=== PATIENT | male | born 1980 | race Caucasian/White ===

== ENCOUNTER 2018-12-11 20:11 | Emergency (ER) | payer BC ==
[2018-12-11] MEDS ORDERED: ASPIRIN 81 MG CHEWABLE TABLET ONE (21:13)
[2018-12-11 21:20] LABS: Basophils % 0.2 % (0-1.3); Eosinophils % 1.4 % (0-4.4); Hematocrit 42.9 % (39.6-49.0); Lymphocytes % 24.8 % (15.3-44.8); MPV 8.6 fL (7.6-11.3); RBC Red Blood Cell Count 4.87 M/uL (4.33-5.43)
[2018-12-11 21:21] LABS: Protime INR 1.03
[2018-12-11 21:28] LABS: ALT/SGPT 33 U/L (12-78); AST/SGOT 21 U/L (15-37); Albumin 3.9 g/dL (3.4-5.0); Alkaline Phosphatase 95 U/L (45-117); BUN Blood Urea Nitrogen 11 mg/dL (7-18); Bicarbonate 27 mmol/L (21-32); Bilirubin Direct < 0.1 mg/dL (0-0.2); Bilirubin Total 0.4 mg/dL (0.2-1.0); Glucose Level 121 mg/dL (74-106); Magnesium 2.1 mg/dL (1.8-2.4); NT PRO-BNP 10 pg/mL (<125); Potassium 3.5 mmol/L (3.5-5.1); Protein, Total 7.7 g/dL (6.4-8.2); Sodium Level 141 mmol/L (136-145); Troponin (Emerg Dept Use Only) < 0.02 ng/mL (0.0-0.045)
--- NOTE | 2018-12-11 21:43 | EDPHYS ---
Physician Documentation [facility] Name: Reese Heredia Age: 38 yrs Sex: Male : 1980 Arrival Date: 12/11/2018 Time: 20:12 Bed 26 Private MD: Jose Martin José R ED Physician Andres Higgins HPI: 12/11 21:35 This 38 yrs old Male presents to ER via Ambulatory with complaints of Chest jr8 Pain. 21:35 The patient or guardian reports chest pain that is located primarily in the substernal jr8 area. The pain does not radiate. Associated signs and symptoms: The patient has no apparent associated signs or symptoms. The chest pain is described as a pressure. Duration: The patient or guardian reports multiple episodes, that are intermittent, that wax and wane, with no pattern. Modifying factors: The symptoms are alleviated by nothing. the symptoms are aggravated by nothing. Severity of pain: At its worst the pain was moderate in the emergency department the pain has improved. The patient has not experienced similar symptoms in the past. The patient has not recently seen a physician. Stated that he has had sudden onset chest pressure for past week that is intermittent but will not go away. Historical: - Allergies: 20:22 Cipro; aj - Immunization history:: Adult Immunizations not up to date. - Ebola Screening: : Patient negative for fever greater than or equal to 101.5 degrees Fahrenheit, and additional compatible Ebola Virus Disease symptoms Patient denies exposure to infectious person Patient denies travel to an Ebola-affected area in the 21 days before illness onset No symptoms or risks identified at this time. - Social history:: Smoking status: Patient/guardian denies using tobacco, never smoked. ROS: 21:35 Eyes: Negative for injury, pain, redness, and discharge, ENT: Negative for injury, jr8 pain, and discharge, Neck: Negative for injury, pain, and swelling, Respiratory: Negative for shortness of breath, cough, wheezing, and pleuritic chest pain, Abdomen/GI: Negative for abdominal pain, nausea, vomiting, diarrhea, and constipation, Back: Negative for injury and pain, MS/Extremity: Negative for injury and deformity, Skin: Negative for injury, rash, and discoloration, Neuro: Negative for headache, weakness, numbness, tingling, and seizure. 21:35 Cardiovascular: Positive for chest pain, Negative for edema, orthopnea, palpitations, paroxysmal nocturnal dyspnea. Exam: 21:35 Eyes: Pupils equal round and reactive to light, extra-ocular motions intact. Lids and jr8 lashes normal. Conjunctiva and sclera are non-icteric and not injected. Cornea within normal limits. Periorbital areas with no swelling, redness, or edema. ENT: Nares patent. No nasal discharge, no septal abnormalities noted. Tympanic membranes are normal and external auditory canals are clear. Oropharynx with no redness, swelling, or masses, exudates, or evidence of obstruction, uvula midline. Mucous membranes moist. Neck: Trachea midline, no thyromegaly or masses palpated, and no cervical lymphadenopathy. Supple, full range of motion without nuchal rigidity, or vertebral point tenderness. No Meningismus. Cardiovascular: Regular rate and rhythm with a normal S1 and S2. No gallops, murmurs, or rubs. Normal PMI, no JVD. No pulse deficits. Respiratory: Lungs have equal breath sounds bilaterally, clear to auscultation and percussion. No rales, rhonchi or wheezes noted. No increased work of breathing, no retractions or nasal flaring. Abdomen/GI: Soft, non-tender, with normal bowel sounds. No distension or tympany. No guarding or rebound. No evidence of tenderness throughout. Back: No spinal tenderness. No costovertebral tenderness. Full range of motion. Skin: Warm, dry with normal turgor. Normal color with no rashes, no lesions, and no evidence of cellulitis. MS/ Extremity: Pulses equal, no cyanosis. Neurovascular intact. Full, normal range of motion. Neuro: Awake and alert, GCS 15, oriented to person, place, time, and situation. Cranial nerves II-XII grossly intact. Motor strength 5/5 in all extremities. Sensory grossly intact. Cerebellar exam normal. Normal gait. Vital Signs: 20:22 BP 157 / 87; Pulse 95; Resp 16; Temp 98.8; Pulse Ox 98% on R/A; Weight 88.45 kg; Height aj 5 ft. 5 in. (165.10 cm); 21:30 BP 148 / 83; Pulse 92; Resp 16 S; Pulse Ox 98% on R/A; cc3 20:22 Body Mass Index 32.45 (88.45 kg, 165.10 cm) aj MDM: 20:31 Patient medically screened. [facility] 21:36 Data reviewed: vital signs, nurses notes, lab test result(s), EKG, radiologic studies, [facility] plain films, and as a result, I will discharge patient. Data interpreted: Pulse oximetry: on room air is 98 %. Interpretation: normal. Counseling: I had a detailed discussion with the patient and/or guardian regarding: the historical points, exam findings, and any diagnostic results supporting the discharge/admit diagnosis, lab results, radiology results, the need for outpatient follow up, a family practitioner, to return to the emergency department if symptoms worsen or persist or if there are any questions or concerns that arise at home. 21:40 Differential diagnosis: abnormal EKG, acute myocardial infarction, coronary artery jr disease chest wall pain, cholecystitis, Cholelithiasis costochondritis, esophagitis, gastritis, gastroesophageal reflux disease (GERD), pancreatitis, peptic ulcer disease, pericarditis, pleurisy, pneumonia, pneumothorax, pulmonary embolus, stable angina, thoracic aortic disection, unstable angina. Response to treatment: the patient's symptoms have mildly improved after treatment. ED course: Labs, ECG, and Imaging without acute finding. Chest pain has been going on for a week now. Family history only risk factor. No cholesterol, HTN, DM, smoking history. Low likelyhood for it to be cardiac in origin. Recommend a few days of Pepcid twice daily to see if it is underlying GERD. If not resolved or improving recommended f/u with cardiology at that point. If worse in between now and then to come back for further evaluation. Patient good with this plan . 12/11 20:32 Order name: Basic Metabolic Panel [facility] 12/11 20:32 Order name: CBC with Diff 12/11 20:32 Order name: LFT's [facility] 12/11 20:32 Order name: Magnesium; Complete Time: 21:[address] [facility] 12/11 20:32 Order name: NT PRO-BNP; Complete Time: 21:[address] [facility] 12/11 20:32 Order name: PT-INR; Complete Time: 21:[address] [facility] 12/11 20:32 Order name: Troponin (emerg Dept Use Only); Complete Time: 21:[address] [facility] 12/11 20:32 Order name: XRAY Chest (1 view) [facility] 12/11 20:32 Order name: EKG; Complete Time: 20:[address] [facility] 12/11 20:32 Order name: Cardiac monitoring; Complete Time: 20:[address] [facility] 12/11 20:49 Order name: Basic Metabolic Panel; Complete Time: 21:35 [facility] 12/11 20:49 Order name: CBC with Automated Diff; Complete Time: 21:35 [facility] 12/11 20:49 Order name: Liver (Hepatic) Function; Complete Time: 21:35 [facility] 12/11 20:32 Order name: EKG - Nurse/Tech; Complete Time: 20:[address] [facility] 12/11 20:32 Order name: IV Saline Lock; Complete Time: 21:[address] [facility] 12/11 20:32 Order name: Labs collected and sent; Complete Time: 21:[address] [facility] 12/11 20:32 Order name: O2 Per Protocol; Complete Time: 20:[address] [facility] 12/11 20:32 Order name: O2 Sat Monitoring; Complete Time: 20:[address] [facility] Administered Medications: 20:55 Drug: Aspirin Chewable Tablet 324 mg Route: PO; cc3 21:30 Follow up: Response: No adverse reaction cc3 Disposition: 12/12 00:17 Co-signature as Attending Physician, Andres Higgins MD. rn Disposition: 12/11/18 21:43 Discharged to Home. Impression: Chest pain, unspecified. - Condition is Stable. - Discharge Instructions: Nonspecific Chest Pain, Chest Wall Pain, Gastroesophageal Reflux Disease, Adult, Chest Pain Observation. - Medication Reconciliation Form, Thank You Letter, Antibiotic Education, Prescription Opioid Use form. - Follow up: Jose Martin José MD; When: 1 - 2 days; Reason: Recheck today's complaints, Continuance of care, Re-evaluation by your physician. - Problem is new. - Symptoms have improved. Signatures: Dispatcher [employer] Fabiola Trejo RN RN aj Nieto, Roman, MD MD rn Roszak, Josh, PA PA [facility] Sharlene Denton cc3 Corrections: (The following items were deleted from the chart) 12/11 21:42 21:36 Counseling: I had a detailed discussion with the patient and/or guardian jr8 regarding: the historical points, exam findings, and any diagnostic results supporting the discharge/admit diagnosis, lab results, radiology results, the need for outpatient follow up, a family practitioner, to return to the emergency department if symptoms worsen or persist or if there are any questions or concerns that arise at home, jr8 22:01 21:43 12/11/2018 21:43 Discharged to Home. Impression: Chest pain, unspecified. cc3 Condition is Stable. Forms are Medication Reconciliation Form, Thank You Letter, Antibiotic Education, Prescription Opioid Use. Follow up: Jose Martin José; When: 1 - 2 days; Reason: Recheck today's complaints, Continuance of care, Re-evaluation by your physician. Problem is new. Symptoms have improved. jr8
--- NOTE | 2018-12-11 21:43 | ER ---
Nurse's Notes [facility] Name: Reese Heredia Age: 38 yrs Sex: Male : 1980 Arrival Date: 12/11/2018 Time: 20:12 Bed 26 Private MD: Jose Martin José R Diagnosis: Chest pain, unspecified Presentation: 12/11 20:21 Presenting complaint: Patient states: Dull chest pressure for 1 week. Care prior to aj arrival: None. 20:21 Method Of Arrival: Ambulatory aj 20:21 Acuity: GA 2 aj 20:27 Transition of care: patient was not received from another setting of care. Onset of cc3 symptoms was December 11, 2018. Risk Assessment: Do you want to hurt yourself or someone else? Patient reports no desire to harm self or others. Initial Sepsis Screen: Does the patient meet any 2 criteria? No. Patient's initial sepsis screen is negative. Does the patient have a suspected source of infection? No. Patient's initial sepsis screen is negative. Triage Assessment: 20:22 General: Appears in no apparent distress. comfortable, Behavior is calm, cooperative, aj appropriate for age. Neuro: Level of Consciousness is awake, alert, obeys commands, Oriented to person, place, time, situation, Appropriate for age. Cardiovascular: Reports chest pain, Capillary refill < 3 seconds in bilateral fingers Patient's skin is warm and dry. Chest pain radiates back. Respiratory: Airway is patent Respiratory effort is even, unlabored, Respiratory pattern is regular, symmetrical. Derm: Skin is intact, is healthy with good turgor, Skin is pink, warm \T\ dry. normal. Historical: - Allergies: 20:22 Cipro; aj - Immunization history:: Adult Immunizations not up to date. - Ebola Screening: : Patient negative for fever greater than or equal to 101.5 degrees Fahrenheit, and additional compatible Ebola Virus Disease symptoms Patient denies exposure to infectious person Patient denies travel to an Ebola-affected area in the 21 days before illness onset No symptoms or risks identified at this time. - Social history:: Smoking status: Patient/guardian denies using tobacco, never smoked. Screenin:27 Abuse screen: Denies threats or abuse. Denies injuries from another. Nutritional cc3 screening: No deficits noted. Tuberculosis screening: No symptoms or risk factors identified. Fall Risk Ambulatory Aid- None/Bed Rest/Nurse Assist (0 pts). Gait- Normal/Bed Rest/Wheelchair (0 pts) Mental Status- Oriented to own ability (0 pts). Assessment: 20:27 General: Appears in no apparent distress. comfortable, Behavior is calm, cooperative, cc3 appropriate for age. Pain: Pain does not radiate. Pain began intermittent since 1 week. Neuro: Level of Consciousness is awake, alert, obeys commands, Oriented to person, place, time, situation, Appropriate for age. Cardiovascular: Denies chest pain, Patient's skin is warm and dry. Respiratory: Airway is patent Respiratory effort is even, unlabored, Respiratory pattern is regular, symmetrical. GI: Abdomen is round non-distended. : No signs and/or symptoms were reported regarding the genitourinary system. EENT: No signs and/or symptoms were reported regarding the EENT system. Derm: Skin is intact, is healthy with good turgor, Skin is pink, warm \T\ dry. normal. Musculoskeletal: Circulation, motion, and sensation intact. Range of motion: intact in all extremities. 21:18 Reassessment: Patient appears in no apparent distress at this time. Patient and/or cc3 family updated on plan of care and expected duration. Pain level reassessed. Patient is alert, oriented x 3, equal unlabored respirations, skin warm/dry/pink. 21:50 Reassessment: Patient appears in no apparent distress at this time. Patient and/or cc3 family updated on plan of care and expected duration. Pain level reassessed. Patient is alert, oriented x 3, equal unlabored respirations, skin warm/dry/pink. AVRIL Russell discharged the patient home, no prescription given. IV cannula removed by ALDAIR Cobian and discharge instructions given by her as well. Patient left ER vitally stable and ambulatory. No valuables left bedside. Patient denies pain at this time. Patient states feeling better. Patient states symptoms have improved. Vital Signs: 20:22 BP 157 / 87; Pulse 95; Resp 16; Temp 98.8; Pulse Ox 98% on R/A; Weight 88.45 kg; Height aj 5 ft. 5 in. (165.10 cm); 21:30 BP 148 / 83; Pulse 92; Resp 16 S; Pulse Ox 98% on R/A; cc3 20:22 Body Mass Index 32.45 (88.45 kg, 165.10 cm) ED Course: 20:12 Patient arrived in ED. es 20:13 Jose Martin José MD is Private Physician. es 20:21 Triage completed. aj 20:22 Arm band placed on right wrist. Patient placed in an exam room. aj 20:27 Sharlene Denton is Primary Nurse. cc3 20:27 Patient has correct armband on for positive identification. Placed in gown. Bed in low cc3 position. Call light in reach. Side rails up X 1. awake overnight monitor on. Pulse ox on. NIBP on. 20:27 Patient maintains SpO2 saturation greater than 95% on room air. cc3 20:31 Sam Russell PA is PHCP. jr8 20:31 Andres Higgins MD is Attending Physician. jr8 20:45 Inserted saline lock: 20 gauge in right antecubital area, using aseptic technique. cc3 Blood collected. inserted by ALDAIR Cobian. 21:11 XRAY Chest (1 view) In Process Unspecified. EDMS 21:43 Jose Martin José MD is Referral Physician. jr8 21:50 No provider procedures requiring assistance completed. IV discontinued, intact, cc3 bleeding controlled, No redness/swelling at site. Pressure dressing applied. Administered Medications: 20:55 Drug: Aspirin Chewable Tablet 324 mg Route: PO; cc3 21:30 Follow up: Response: No adverse reaction cc3 Outcome: 21:43 Discharge ordered by . jr8 21:50 Discharged to home ambulatory. cc3 21:50 Condition: stable 21:50 Discharge instructions given to patient, Instructed on discharge instructions, follow up and referral plans. Demonstrated understanding of instructions, follow-up care. 22:01 Patient left the ED. cc3 Signatures: Dispatcher [employer] Fabiola Trejo RN RN aj Salyer, Edna es Roszak, Josh, PA PA jrSharlene Moon cc3
--- NOTE | 2018-12-12 06:39 | EKG ---
Test Date: 2018-12-11 Test Time: 20:31:56 Time Study Technician: AG3 MEASUREMENT RESULTS: Intervals: Rate: 85 VA: 140 QRSD: 80 QT: 350 QTc: 416 [place]: P: 56 VA: 140 QRS: 51 T: 37 INTERPRETIVE STATEMENTS: Normal sinus rhythm Normal ECG No previous ECG available for comparison Electronically Signed On 12-12-18 06:39:00 CDT by Jonh Tellez
--- NOTE | 2018-12-12 08:38 | RAD REPORT ---
EXAM DESCRIPTION: RAD - Chest Single View - 12/11/2018 9:11 pm CLINICAL HISTORY: Chest pain, chest pressure COMPARISON: None. TECHNIQUE: AP portable chest image was obtained 2102 hours . FINDINGS: Lungs are clear. Heart and vasculature are normal. No measurable pleural effusion and no p neumothorax. No acute bony abnormality seen. No acute aortic findings suspected. IMPRESSION: No acute cardiopulmonary process.
== END 2018-12-11 22:01 | disposition home or self-care (01) ==
LOC: ER 20:11
DX: R07.9 Chest pain, unspecified (principal); Z88.1 Allergy status to other antibiotic agents
CPT/HCPCS: 36415; 71045; 80048; 80076; 83735; 83880; 84484; 85025; 85610; 93005; 99285